=== PATIENT | male | born 1975 | race African-American/Black ===

== ENCOUNTER 2017-02-04 11:52 | Inpatient (IN) | payer BC ==
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
[2017-02-04] MEDS ORDERED: DIPH,PERTUS(ACELL)TETVAC-LF 0.5 ML VIAL IM ONE (12:48)
[2017-02-04] MEDS ORDERED: LORazepam 1 MG TAB PO STA ×3 (13:14→21:41)
--- NOTE | 2017-02-04 13:32 | XR ---
EXAMINATION TYPE: XR foot complete RT DATE OF EXAM: 02/04/2017 COMPARISON: NONE HISTORY: 41-year-old male with pain after injury TECHNIQUE: 3 views FINDINGS: Tiny loose body or fragmented spur along the lateral aspect of the first MTP joint is corti cated and chronic. Garcia's toe. Question pes planus. No acute fracture, subluxation, or dislocation. IMPRESSION: No acute osseous abnormality seen.
[2017-02-04] MEDS ORDERED: LISINOPRIL 20 MG TAB PO STA (18:51)
[2017-02-04] MEDS ORDERED: LISINOPRIL 10 MG TAB PO STA (20:45)
[2017-02-04] MEDS ORDERED: cloNIDine HCL 0.1 MG TAB PO STA ×2 (22:24→23:05)
[2017-02-05] MEDS ORDERED: ZIPRASIDONE 20 MG VIAL IM PRN (01:24)
[2017-02-05] MEDS ORDERED: MAGNESIUM HYDROXIDE 2,400 MG/10 ML CUP PO PRN (01:24)
[2017-02-05] MEDS ORDERED: ACETAMINOPHEN TAB 325 MG TAB PO PRN (01:24)
[2017-02-05] MEDS ORDERED: MAG HYDROX/AL HYDROX/SIMETH 30 ML CUP PO PRN (01:24)
[2017-02-05] MEDS ORDERED: OLANZapine ODT 5 MG TAB PO PRN (01:41)
[2017-02-05] MEDS ORDERED: traZODone HCL 50 MG TAB PO PRN (01:47)
[2017-02-05] MEDS ORDERED: LORazepam 2 MG/ML SYRINGE IM PRN (01:49)
[2017-02-05 02:36] VITALS: BMI 25.2
[2017-02-05 08:52] LABS: Basophils % (A) 0 %; CH 28.4; Eosinophils # (A) 0.1 k/uL (0-0.7); Eosinophils % (A) 2 %; HCT 43.5 % (39.0-53.0); HDW 2.52; HGB 14.4 gm/dL (13.0-17.5); Luc # (Auto) 0.17; Luc % (Auto) 3; Lymphocytes % (A) 36 %; MCH 28.6 pg (25.0-35.0); MCHC 33.2 g/dL (31.0-37.0); MCV 86.3 fL (80.0-100.0); Mean Platelet Volume 7.2; Monocytes # (A) 0.5 k/uL (0-1.0); Monocytes % (A) 8 %; Neutrophils # (A) 2.9 k/uL (1.3-7.7); Neutrophils % (A) 51 %; RBC 5.04 m/uL (4.30-5.90); RDW 13.7 % (11.5-15.5); WBC 5.7 k/uL (3.8-10.6); WBC (Perox) 5.64
[2017-02-05 08:53] LABS: ALT 37 U/L (21-72); AST 27 U/L (17-59); Alkaline Phosphatase 66 U/L (38-126); Anion Gap 9 mmol/L; Blood Urea Nitrogen 8 mg/dL (9-20); Calcium 9.4 mg/dL (8.4-10.2); Carbon Dioxide 25 mmol/L (22-30); Chloride 104 mmol/L (98-107); Glucose 94 mg/dL (74-99); Non-African American GFR(MDRD) >60 (>60 ml/min/1.73 sqM); Potassium 4.4 mmol/L (3.5-5.1); Sodium 138 mmol/L (137-145); Total Bilirubin 1.8 mg/dL (0.2-1.3); Total Protein 7.1 g/dL (6.3-8.2)
[2017-02-05] MEDS: LISINOPRIL 20 MG TAB PO SCH (09:53)
[2017-02-05] MEDS: NICOTINE 7MG/24HR PATCH TRANSDERM SCH (09:53)
[2017-02-05 12:02] LABS: Amorphous Sediment,Urine Moderate /hpf; Appearance,Urine Cloudy (Clear); Bilirubin,Urine Negative (Negative); Glucose,Urine (UA) Negative (Negative); Ketones,Urine Negative (Negative); Leukocyte Esterase,Urine Negative (Negative); Nitrite,Urine Negative (Negative); Particle Count 14975; Protein,Urine Trace (Negative); Specific Gravity,Urine 1.016 (1.001-1.035); Sperm,Urine Rare /hpf; UA Billing (MACRO vs. MICRO) MICRO; Urobilinogen,Urine <2.0 mg/dL (<2.0)
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
[2017-02-05] MEDS: buPROPion 75 MG TAB PO SCH ×2 (15:30→21:15)
[2017-02-05] MEDS: LORazepam 1 MG TAB PO PRN (17:18)
[2017-02-06] MEDS: buPROPion 75 MG TAB PO SCH (09:07)
[2017-02-06] MEDS: LISINOPRIL 20 MG TAB PO SCH (09:08)
[2017-02-06] MEDS: NICOTINE 7MG/24HR PATCH TRANSDERM SCH (09:08)
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
[2017-02-06] MEDS: buPROPion XL 300 MG TAB.ER.24H PO SCH (14:37)
--- NOTE | 2017-02-06 15:32 | CONS ---
DATE OF SERVICE: 02/05/2017 CHIEF COMPLAINT: Anxiety and depression. HISTORY OF PRESENT ILLNESS: This is a 41-year-old male with past medical history significant for anxiety and depression, presents to the hospital with suicidal ideation and acute depression. The patient stated that he has been drinking heavily for the last one month where he drinks two pints of vodka every day and even more if he can afford it. The patient ( ) presented to the emergency unit, admitted to the psych floor. The patient currently is denying chest pain, shortness of breath, nausea, vomiting, abdominal pain, dizziness, lightheadedness or blurry vision. REVIEW OF SYSTEMS: All reviewed and negative except for as above. ALLERGIES: No known drug allergies. PAST MEDICAL HISTORY: 1. Anxiety. 2. Hypertension. 3. Depression. SOCIAL HISTORY: The patient reported smoking cigar every day, drinking two pints of vodka every day and smoking marijuana on as needed basis. The patient states that he quit work a month ago. FAMILY HISTORY: Reviewed and negative. SURGICAL HISTORY: Positive for left hernia repair at age 19. HOME MEDICATIONS: Lisinopril 20 mg daily. The patient is supposed to be on other psych medication that he never took. PHYSICAL EXAMINATION: VITAL SIGNS: Reviewed and stable. LUNGS: Clear to auscultation bilaterally. HEART: Normal S1 and S2. ABDOMEN: Soft. No tenderness. Bowel sounds present in all four quadrants. LOWER EXTREMITIES: No edema. PSYCH: Alert and oriented x3. Relaxed mood and affect. NEURO: No focal deficits. Cranial nerves 2-12 intact. SKIN: No rash. IMAGING AND LABS: CBC normal. ( ) normal. ASSESSMENT AND PLAN: 1. Anxiety and depression with acute presentation per your management. 2. Alcohol intoxication with no signs of withdrawal. At this point will monitor the patient closely. Consider alcohol withdrawal protocol based on patient's symptoms. Discussed with the nursing staff. 3. Hypertension. Will resume his lisinopril and monitor vital signs during this hospital stay. 4. Tobacco dependency and marijuana abuse. Will dianetic counselor patient regarding cessation. 5. Left hernia repair at age 19 and currently some bulging area not consistent with another hernia on physical examination. Patient agreed to follow up with his surgeon outpatient in that regard. Discharge plan based on clinical evaluation. TIM
[2017-02-07] MEDS: NICOTINE 7MG/24HR PATCH TRANSDERM SCH (09:02)
[2017-02-07] MEDS: LISINOPRIL 20 MG TAB PO SCH (09:04)
[2017-02-07] MEDS: buPROPion XL 300 MG TAB.ER.24H PO SCH (09:04)
[2017-02-07] MEDS: LORazepam 1 MG TAB PO PRN (09:05)
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
[2017-02-07] MEDS ORDERED: cloNIDine HCL 0.1 MG TAB PO STA (09:25)
[2017-02-07] MEDS ORDERED: cloNIDine HCL 0.1 MG TAB PO PRN (09:26)
[2017-02-07] MEDS: cloNIDine HCL 0.1 MG TAB PO PRN ×2 (11:50→18:37)
[2017-02-08 06:33] VITALS: TEMP 97.6
[2017-02-08] MEDS: NICOTINE 7MG/24HR PATCH TRANSDERM SCH (09:15)
[2017-02-08] MEDS: buPROPion XL 300 MG TAB.ER.24H PO SCH (09:15)
[2017-02-08] MEDS: LISINOPRIL 20 MG TAB PO SCH (09:15)
[2017-02-08 09:22] VITALS: BP 148/95; PULSE 94; RESP 18
[2017-02-08] MEDS ORDERED: cloNIDine HCL 0.2 MG TAB PO SCH ×2 (09:30→21:00)
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
== END 2017-02-08 12:15 | disposition home or self-care (01) | DRG 885 ==
LOC: EC 11:52 → 3MHU 02-05 00:37
PROVIDERS: ADMIT Psychiatry & Neurology Addiction Medicine; ATTEND Psychiatry & Neurology Addiction Medicine
DX: F32.2 Major depressive disorder, single episode, severe without psychotic features (principal); R45.851 Suicidal ideations; F10.239 Alcohol dependence with withdrawal, unspecified; I10 Essential (primary) hypertension; F12.20 Cannabis dependence, uncomplicated; F17.200 Nicotine dependence, unspecified, uncomplicated; F41.9 Anxiety disorder, unspecified; G47.9 Sleep disorder, unspecified; Z79.899 Other long term (current) drug therapy; Z65.3 Problems related to other legal circumstances; Z91.5 Personal history of self-harm; Z81.8 Family history of other mental and behavioral disorders
CPT/HCPCS: 80053; 80306; 81001; 82075; 84443; 85025; 90471; 90715; 99285